=== PATIENT | male | born 1975 | race Caucasian/White ===

== ENCOUNTER 2018-11-11 09:06 | Outpatient (RCR) | payer MEDICARE ==
[~2018-11-11 09:06] MED LIST: AZIT-21 PO; CLIN300C3 PO; CRS350T PO; CYCL-97; GBPN300C; HYDR-2890 PO; HYDR-34; LEVO500T69 PO; METH4TAB PO; NORT10CA; PRM25T PO; SOMA; SULF1TAB38 PO
== END 2018-12-07 14:54 | disposition home or self-care (01) ==
PROVIDERS: ATTEND Orthopaedic Surgery
DX: S72.401K Unspecified fracture of lower end of right femur, subsequent encounter for closed fracture with nonunion (principal)